=== PATIENT | female | born 1990 | race American Indian/Alaskan Native ===

== ENCOUNTER 2018-12-09 04:43 | Emergency (ER) | payer MEDICAID, OTHER ==
[2018-12-09] MEDS ORDERED: ATIVAN ONE (05:37)
[2018-12-09] MEDS ORDERED: ATIVAN PO ONE (05:41)
--- NOTE | 2018-12-09 05:47 | Emergency Department Report ---
ED ENT HPI - General Chief complaint: Earache Stated complaint: SOMETHING IN RIGHT EAR Time Seen by Provider: 12/09/18 05:42 Source: patient Mode of arrival: Ambulatory Limitations: No Limitations - History of Present Illness Initial comments: 28-year-old -[place] female with no past medical history comes in reporting she feels like symptoms in her right ear this is about 1 hour prior to arrival. complaint: foreign body -: hour(s) (1 prior to arrival) Location: R ear Severity: moderate Severity scale (0 -10): 5 Quality: sharp Improves with: none Worsens with: none - Related Data Allergies Allergy/AdvReac Type Severity Reaction Status Date / Time No Known Allergies Allergy Verified 10/25/17 21:51 ED Dental HPI - General Chief complaint: Earache Stated complaint: SOMETHING IN RIGHT EAR Time Seen by Provider: 12/09/18 05:42 Source: patient Mode of arrival: Ambulatory Limitations: No Limitations - Related Data Allergies Allergy/AdvReac Type Severity Reaction Status Date / Time No Known Allergies Allergy Verified 10/25/17 21:51 ED Review of Systems ROS: Stated complaint: SOMETHING IN RIGHT EAR Other details as noted in HPI Comment: All other systems reviewed and negative Constitutional: denies: chills, fever ENT: ear pain (right) ED Past Medical Hx - Past Medical History Previous Medical History?: No Hx Hypertension: No Hx Diabetes: No Hx Deep Vein Thrombosis: No Hx Renal Disease: No Hx Sickle Cell Disease: No Hx Seizures: No Hx Asthma: No Hx HIV: No - Surgical History Past Surgical History?: No - Social History Smoking Status: Current Every Day Smoker Substance Use Type: None ED Physical Exam - General Limitations: No Limitations General appearance: alert, in no apparent distress - Eye Eye exam: Present: EOMI - Expanded ENT Exam Expanded TM/Canal exam: Foreign Body: Right TM (live ipnto) ED Course Vital Signs 12/09/18 12/09/18 04:47 04:58 Temperature 99.0 F 99 F Pulse Rate 86 84 Respiratory 18 18 Rate Blood Pressure 155/88 155/88 O2 Sat by Pulse 100 100 Oximetry - Foreign Body Removal Ear Location: ear canal (R) Foreign Body Suspected: insect If Insect Suspected: ear canal instilled with Foreign Body Removed: yes Foreign Body Removal Technique: instrumentation Tympanic Membrane Intact: Yes Patient Tolerated Procedure: well Complications: none Critical care attestation.: If time is entered above; I have spent that time in minutes in the direct care of this critically ill patient, excluding procedure time. ED Disposition Clinical Impression: Foreign body of ear, right Qualifiers: Encounter type: initial encounter Qualified Code(s): T16.1XXA - Foreign body in right ear, initial encounter Disposition: TO HOME OR SELFCARE Is pt being admited?: No Does the pt Need Aspirin: No Condition: Stable Instructions: Ear Foreign Body (ED) Additional Instructions: You can take Tylenol or Motrin for pain management. Referrals: PRIMARY CARE, [Primary Care Provider] - 3-5 Days Forms: Accompanied Note
[2018-12-09 06:21] VITALS: BP 118/85
== END 2018-12-09 06:22 | disposition home or self-care (01) ==
LOC: ED 04:43
DX: T16.1XXA Foreign body in right ear, initial encounter (principal); F17.200 Nicotine dependence, unspecified, uncomplicated; X58.XXXA Exposure to other specified factors, initial encounter; Y93.89 Activity, other specified; Y92.89 Other specified places as the place of occurrence of the external cause; Y99.8 Other external cause status